=== PATIENT | female | born 1965 | race Caucasian/White ===

== ENCOUNTER → 2024-08-10 09:08 | Outpatient (REF) | payer OTHER, SELFPAY | LOC: WDC 09:08 | PROVIDERS: ATTENDING PHYSICIAN Obstetrics & Gynecology Gynecology; FAMILY PHYSICIAN Family Medicine | DX: Z12.31 Encounter for screening mammogram for malignant neoplasm of breast (principal) | CPT/HCPCS: 77063; 77067 ==

== ENCOUNTER → 2024-11-17 13:04 | Outpatient (REF) | payer OTHER, SELFPAY | LOC: HWRAD 13:04 | PROVIDERS: ATTENDING PHYSICIAN Physician Assistant Medical; FAMILY PHYSICIAN Nurse Practitioner Adult Health | DX: M54.9 Dorsalgia, unspecified (principal) | CPT/HCPCS: 72052; 72072 ==

== ENCOUNTER → 2025-03-24 15:01 | Outpatient (REF) | payer OTHER, SELFPAY | LOC: HWRCS 15:01 | PROVIDERS: ATTENDING PHYSICIAN Internal Medicine Cardiovascular Disease; FAMILY PHYSICIAN Physician Assistant Medical | DX: I34.1 Nonrheumatic mitral (valve) prolapse (principal); I34.0 Nonrheumatic mitral (valve) insufficiency | CPT/HCPCS: 93306 ==

== ENCOUNTER → 2025-08-29 10:37 | Outpatient (REF) | payer OTHER, SELFPAY | LOC: WDC 10:37 | PROVIDERS: ATTENDING PHYSICIAN Obstetrics & Gynecology Gynecology | DX: Z12.31 Encounter for screening mammogram for malignant neoplasm of breast (principal) | CPT/HCPCS: 77063; 77067 ==